=== PATIENT | female | born 1980 | race Caucasian/White ===

== ENCOUNTER 2022-10-22 15:27 | Emergency (ER) | payer OTHER ==
[~2022-10-22] VITALS: Ht 157.5 cm; Wt 51.4 kg
--- OUTSIDE RECORDS SUMMARY | 2022-10-22 15:30 | XMS ---
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 Diana has no Care Guidelines for this patient. [place] VISIT COUNT (12 MO.) 1 ALEXX Galdamez TOTAL 1 NOTE: Visits indicate total known visits. ED/UCC VISIT TRACKING (12 MO.) 10/22/2022 15:28 ALEXX Kitchen OR TYPE: Emergency COMPLAINT: - LT SIDED PAIN INPATIENT VISIT TRACKING (12 MO.) No inpatient visits to display in this time frame [email or web address]
[2022-10-22] MEDS ORDERED: ESTRADIOL1 MG PO (15:36)
[2022-10-22] MEDS ORDERED: RISPERIDONE0.5 MG PO (17:12)
[2022-10-22] MEDS ORDERED: METHYLPHENIDATE18 MG PO (17:12)
[2022-10-22] MEDS ORDERED: PRENATAL VITAM1 EAC5 PO (17:13)
[2022-10-22] MEDS ORDERED: HYDROXYZINE HCL50 MG PO (17:13)
[2022-10-22] MEDS ORDERED: DOXYCYCLINE HY100 MG PO (19:12)
[2022-10-22] MEDS ORDERED: VENTOLIN HFA18 GM INH (19:12)
[2022-10-22] MEDS ORDERED: NAPROSYN500 MG PO (19:12)
--- NOTE | 2022-10-22 19:36 | EKG ---
[facility] [address] [place] [address] Signed Normal sinus rhythm Normal ECG No previous ECGs available Confirmed by Jose Ramon Luna MD () on 10/22/2022 7:36:34 PM Electronically Signed By: JOSE RAMON LUNA MD 10/22/221935 PATIENT NAME: KAY TORRES Electrocardiogram DATE OF : 84 PHYSICIAN: JOSE RAMON LUNA MD REPORT #: [id number] REPORT IS CONFIDENTIAL AND NOT TO BE RELEASED WITHOUT AUTHORIZATION
== END 2022-10-22 19:35 | disposition home or self-care (01) ==
LOC: ED 15:27
DX: J42 Unspecified chronic bronchitis (principal); R59.0 Localized enlarged lymph nodes; N63.0 Unspecified lump in unspecified breast; Z88.8 Allergy status to other drugs, medicaments and biological substances; Z88.1 Allergy status to other antibiotic agents; Z88.2 Allergy status to sulfonamides; Z79.899 Other long term (current) drug therapy
CPT/HCPCS: 36415; 71260; 80053; 84484; 84703; 85025; 85379; 93005; 93010; 99285-25; J1885; Q9967